=== PATIENT | female | born 1970 | race Caucasian/White ===

== ENCOUNTER 2020-07-16 09:41 | Outpatient (CLI) | payer OTHER | END 2020-07-16 10:03 | disposition home or self-care (01) | LOC: MAMO-SONO 09:41 | PROVIDERS: ATTEND Obstetrics & Gynecology | DX: N94.0 Mittelschmerz (principal); R10.2 Pelvic and perineal pain; N94.89 Other specified conditions associated with female genital organs and menstrual cycle; N63.0 Unspecified lump in unspecified breast; N64.59 Other signs and symptoms in breast; N64.89 Other specified disorders of breast ==